=== PATIENT | male | born 1990 | race American Indian/Alaskan Native ===

== ENCOUNTER 2020-10-18 15:43 | Emergency (ER) | payer SELFPAY ==
[2020-10-18 15:54] VITALS: BP 148/89
--- NOTE | 2020-10-18 16:46 | XRay Report ---
XR hand 3+V RT INDICATION / CLINICAL INFORMATION: pain after dropping weight on hand. COMPARISON: None available. FINDINGS: No acute fracture. Normal alignment. Joint spaces are preserved. No destructive osseous lesion or s uspicious periosteal reaction. Impression: 1.No acute fracture. Signer Name: Raciel Hall MD Signed: 10/18/2020 4:42 PM Workstation Name: [id number]
[2020-10-18] MEDS ORDERED: IBUPROFEN 800 MG TAB PO ONE (17:35)
--- NOTE | 2020-10-18 17:35 | Emergency Department Report ---
ED General Adult HPI - General Chief complaint: Extremity Injury, Upper Stated complaint: RT HAND INJURED Time Seen by Provider: 10/18/20 16:19 Source: patient Mode of arrival: Ambulatory Limitations: No Limitations - History of Present Illness Initial comments: 30-year-old male patient presents with complaints of right hand after punching a wall x yesterday. Pt rates his pain as as a 8/10 in severity. He denies trying any medication for his pain. Pain worsens with movement of the wrist and he denies any numbness/tingling/weakness in his pain Severity scale (0 -10): 9 - Related Data Previous Rx's Medication Instructions Recorded Last Taken Type Ibuprofen [Motrin 800 MG tab] 800 mg PO TID PRN #21 tablet 10/18/20 Unknown Rx Allergies Allergy/AdvReac Type Severity Reaction Status Date / Time No Known Allergies Allergy Unverified 10/18/20 15:51 ED Review of Systems ROS: Stated complaint: RT HAND INJURED Other details as noted in HPI Constitutional: denies: chills, fever Respiratory: denies: shortness of breath Musculoskeletal: joint swelling, arthralgia Skin: denies: lesions, change in color Neurological: denies: numbness, paresthesias ED Past Medical Hx - Past Medical History Previous Medical History?: No - Surgical History Past Surgical History?: No - Medications Home Medications: Home Medications Medication Instructions Recorded Confirmed Last Taken Type Ibuprofen [Motrin 800 MG tab] 800 mg PO TID PRN #21 tablet 10/18/20 Unknown Rx ED Physical Exam - General Limitations: No Limitations General appearance: alert, in no apparent distress - Head Head exam: Present: atraumatic, normocephalic - Eye Eye exam: Present: normal appearance - ENT ENT exam: Present: normal exam - Neck Neck exam: Present: full ROM - Respiratory Respiratory exam: Absent: respiratory distress - Cardiovascular Cardiovascular Exam: Present: regular rate - Extremities Exam Extremities exam: Present: other (Mild to moderate swelling of the dorsal aspect of the right hand noted with tenderness to palpation of the third fourth and fifth mid/proximal meta carpals; normal perfusion and sensation is noted; patient has full range of motion of the wrist and hand) - Neurological Exam Neurological exam: Present: alert, oriented X3 - Psychiatric Psychiatric exam: Present: normal affect, normal mood - Skin Skin exam: Present: warm, dry, intact, normal color. Absent: rash ED Course Vital Signs 10/18/20 15:51 Temperature 98.1 F Pulse Rate 74 Respiratory 18 Rate Blood Pressure 148/89 [Left] O2 Sat by Pulse 97 Oximetry - Procedure Description Procedures done: Ulnar gutter splint placed. Patient tolerated procedure well. Normal perfusion and sensation of the fingers noted post application of splint. Denies any discomfort from the splint ED Medical Decision Making - Radiology Data Radiology results: report reviewed XR hand 3+V RT INDICATION / CLINICAL INFORMATION: pain after dropping weight on hand. COMPARISON: None available. FINDINGS: No acute fracture. Normal alignment. Joint spaces are preserved. No destructive osseous lesion or suspicious periosteal reaction. Impression: 1.No acute fracture. - Medical Decision Making 30-year-old male patient presents with complaints of right hand after punching a wall x yesterday. Pt rates his pain as as a 8/10 in severity. He denies trying any medication for his pain. Pain worsens with movement of the wrist and he denies any numbness/tingling/weakness in his pain X-rays negative for any acute bony abnormalities, however I am suspicious for possible hamate on the oblique view of the hand x-ray. Patient placed in an ulnar gutter splint and informed he will need to follow-up with orthopedics within 2 to 3 days. His vitals are normal, he is well-appearing, he is stable for discharge home. Strict return precautions were discussed in detail with patient who verbalized understanding Critical care attestation.: If time is entered above; I have spent that time in minutes in the direct care of this critically ill patient, excluding procedure time. ED Disposition Clinical Impression: Injury of right hand Qualifiers: Encounter type: initial encounter Qualified Code(s): S69.91XA - Unspecified injury of right wrist, hand and finger(s), initial encounter Disposition: - TO HOME OR SELFCARE Is pt being admited?: No Condition: Stable Instructions: Wrist Sprain, Adult, Wrist Fracture Treated With Immobilization Prescriptions: Ibuprofen [Motrin 800 MG tab] 800 mg PO TID PRN #21 tablet PRN Reason: pain Referrals: [facility] [Provider Group] - 3-5 Days Forms: Work/School Release Form(ED)
== END 2020-10-18 18:00 | disposition home or self-care (01) ==
LOC: ED 15:43
DX: S69.91XA Unspecified injury of right wrist, hand and finger(s), initial encounter (principal); Z79.1 Long term (current) use of non-steroidal anti-inflammatories (NSAID); W22.01XA Walked into wall, initial encounter; Y93.89 Activity, other specified; Y92.89 Other specified places as the place of occurrence of the external cause; Y99.8 Other external cause status
CPT/HCPCS: 99283

== ENCOUNTER 2021-02-19 16:41 | Emergency (ER) | payer SELFPAY ==
[2021-02-19 17:02] VITALS: BP 134/67
--- NOTE | 2021-02-19 19:48 | Emergency Department Report ---
Chief Complaint: Dyspnea/Respdistress Stated Complaint: FEVER Time Seen by Provider: 02/19/21 19:44 - HPI History of Present Illness: 30-year-old -[place] male presents to the emergency room reporting he had a fever at work. Patient states he has had a runny nose, cough, sneezing and runny eyes for the last 2 weeks. Patient states he took [id number] medication. Patient reports that when he came here he has no fever. Patient states he is not taking anything that will have reduced his fever. He denies any sick contact. Denies any chest pain shortness of breathing. - Exam Vital Signs: Vital Signs 02/19/21 16:51 Temperature 98.7 F Pulse Rate 88 Respiratory 18 Rate Blood Pressure 134/67 O2 Sat by Pulse 97 Oximetry Physical Exam: General: Awake, appropriately interactive, no acute distress. Neck: Supple. Full range of motion intact. Cardiovascular: Normal peripheral perfusion. Pulmonary: No respiratory distress. Patient is speaking normally without use of accessory muscles. Skin: No apparent rashes or lesions. Neurological: No facial asymmetry. Speech is clear. Follows commands. Patient is alert and oriented. Musculoskeletal: Full range of motion, no crepitus. No tenderness to palpate nonerythematous no edema test appreciated. Able to bear weight and ambulate without difficulty. Distal neurovascular and motor/sensory function is intact. Psych: Cooperative. Appropriate mood and affect. MSE screening note: Focused history and physical exam performed. Due to findings the following was ordered: 30-year-old -[place] male presents to the emergency room reporting he had a fever at work. Patient states he has had a runny nose, cough, sneezing and runny eyes for the last 2 weeks. Patient states he took [id number] medication. Patient reports that when he came here he has no fever. Patient states he is not taking anything that will have reduced his fever. He denies any sick contact. Denies any chest pain shortness of breathing. Recommend [id number] allergy medication. Tylenol or ibuprofen as needed for pain. ED Disposition for MSE Disposition: MED SCREENING EXAM-LEFT Is pt being admited?: No Does the pt Need Aspirin: No Condition: Stable Instructions: Allergic Rhinitis, Adult Additional Instructions: Recommend [id number] Claritin Zyrtec's or Silvina. Increase your water intake. Tylenol or ibuprofen as needed for headaches, sore throat or fever. Referrals: PRIMARY CARE, [Primary Care Provider] - 3-5 Days [facility] [Provider Group] - 3-5 Days Forms: Work/School Release Form(ED)
== END 2021-02-19 20:00 | disposition left against medical advice (07) ==
LOC: ED 16:41
DX: R50.9 Fever, unspecified (principal); Z53.21 Procedure and treatment not carried out due to patient leaving prior to being seen by health care provider